=== PATIENT | female | born 1935 | race Caucasian/White ===

== ENCOUNTER 2017-10-29 08:50 | Emergency (ER) | payer OTHER ==
[~2017-10-29] VITALS: Ht 162.6 cm; Wt 80.0 kg
[~2017-10-29 08:50] MED LIST: CYCL-36 PO; LORT5TAB PO; MEVA40TA6 PO
[2017-10-29 08:54] VITALS: BP 162/72; PULSE 86; RESP 15; TEMP 98.4; O2SAT 98
[2017-10-29] MEDS ORDERED: ATOR40TA16 PO (09:06)
--- NOTE | 2017-10-29 10:00 | PD ---
HPI Chief Complaint: Fall Time Seen by Provider: 09:57 Travel History International Travel<30 days: No Contact w/Intl Traveler<30days: No Traveled to known affect area: No History of Present Illness HPI 81-year-old female patient presents to the ER today brought in by EMS, states that she had tripped and fallen last night, fell onto her right shoulder and right rib area where she is hurting, and is not sure whether she had any head injury. She denies any loss of consciousness. She states that she is having trouble moving the right shoulder and is having rib pain today. She denies any shortness of breath, or any other issues. Modifying Factors: None Associated Signs & Symptoms: Loss of balance and fall, right rib injury, right shoulder injury Risk Factors: None PFSH Past Medical History High Cholesterol: Yes Diminished Hearing: No Tetanus Vaccination: Unknown Influenza Vaccination: No Menopausal: Yes Past Surgical History Hysterectomy: Yes Other Surgery: Yes (colectomy) Social History Alcohol Use: Yes (2 vodka drinks daily) Tobacco Use: No Substance Use: No Allergies-Medications (Allergen,Severity, Reaction): Coded Allergies: No Known Allergies (Verified Adverse Reaction, Unknown, 10/29/17) Reported Meds & Prescriptions Reported Meds & Active Scripts Active Reported Atorvastatin (Atorvastatin Calcium) 40 Mg Tab 40 Mg PO HS Review of Systems Except as stated in HPI: all other systems reviewed are Neg Physical Exam Narrative GENERAL: Well-developed pleasant elderly white female patient currently in mild distress. Awake and oriented 3. SKIN: Focused skin assessment warm/dry. HEAD: Atraumatic. Normocephalic. EYES: Pupils equal and round. No scleral icterus. No injection or drainage. ENT: No nasal bleeding or discharge. Mucous membranes pink and moist. NECK: Trachea midline. No JVD. CARDIOVASCULAR: Regular rate and rhythm. No murmur appreciated. RESPIRATORY: No accessory muscle use. Clear to auscultation. Breath sounds equal bilaterally. CHEST: Tender to palpation of the right lateral rib area without deformity or crepitance. No retractions or use of accessory muscles. Right shoulder: Tender to palpation, no obvious deformities identified. Pain with ranging. GASTROINTESTINAL: Abdomen soft, non-tender, nondistended. Hepatic and splenic margins not palpable. MUSCULOSKELETAL: No obvious deformities. No clubbing. No cyanosis. No edema. NEUROLOGICAL: Awake and alert. No obvious cranial nerve deficits. Motor grossly within normal limits. Normal speech. PSYCHIATRIC: Appropriate mood and affect; insight and judgment normal. Data Data Last Documented VS Vital Signs Date Time Temp Pulse Resp B/P (MAP) Pulse Ox O2 Delivery O2 Flow Rate FiO2 10/29/17 08:54 98.4 86 15 162/72 (102) 98 Orders Orders Ribs, Uni (W/Exp Cxr-Min 3vw) (10/29/17 09:57) Shoulder, Complete (>2vws) (10/29/17 09:57) Ct Brain W/O Iv Contrast(Rout) (10/29/17 09:57) Splint Or Brace Apply/Monitor (10/29/17 11:29) [facility] Medical Decision Making Medical Screen Exam Complete: Yes Emergency Medical Condition: Yes Medical Record Reviewed: Yes Interpretation(s) Last [address] 10/29/17956 Signed Impressions: Service Date/Time: October 10:16 - CONCLUSION: 1. Aging brain with generalized volume loss. 2. No evidence of acute infarct, hemorrhage , mass or edema. 3. Intact skull. Kevin Urban MD Differential Diagnosis Trip and fall, right shoulder pain, right rib pains: Fractures versus contusions versus strain Narrative Course CT the brain did not show any signs of acute intracranial processes or injuries. X-rays show nondisplaced fifth and sixth rib fractures and a right humeral fracture which does not appear significantly displaced. She is placed in a sling. Medications are given for pain. Follow-up with orthopedics. Return for any worsening in pain or new symptoms as needed. The plan was discussed with the patient and she states understanding. Diagnosis Primary Impression: Fall Additional Impressions: Right rib fracture Right humeral fracture Med/Other Pt SpecificInfo: Prescription(s) given Scripts Oxycodone-Acetaminophen (Percocet) 5-325 mg Tab 1-2 TAB PO Q6H Y for PAIN, #20 TAB 0 Refills Prov: Lena Guzmán MD 10/29/17 Disposition: 01 DISCHARGE HOME Condition: Stable Lena Guzmán MD Oct 29, 2017 10:00
--- NOTE | 2017-10-29 10:27 | RADRPT ---
EXAM DATE/TIME: 10/29/2017 10:16 [facility] COMPARISON: No previous studies available for comparison. INDICATIONS : Fall last night RADIATION DOSE: 42.70 CTDIvol (mGy) MEDICAL HISTORY : None SURGICAL HISTORY : Hysterectomy. Colon Surgery ENCOUNTER: Initial ACUITY: 1 day PAIN SCALE: 2/10 LOCATION: cranial TECHNIQUE: Multiple contiguous axial images were obtained of the head. Using automated exposure control and adj ustment of the mA and/or kV according to patient size, radiation dose was kept as low as reasonably a chievable to obtain optimal diagnostic quality images. DICOM format image data is available electro nically for review and comparison. FINDINGS: CEREBRUM: The CSF spaces are enlarged. No evidence of midline shift, mass lesion, hemorrhage or acute infarctio n. No extra-axial fluid collections are seen. POSTERIOR FOSSA: The cerebellum and brainstem are intact. The 4th ventricle is midline. The cerebellopontine angle i s unremarkable. EXTRACRANIAL: The visualized portion of the orbits is intact. SKULL: The calvaria is intact. No evidence of skull fracture. CONCLUSION: 1. Aging brain with generalized volume loss. 2. No evidence of acute infarct, hemorrhage, mass or edema. 3. Intact skull. Kevin Urban MD on October 29, 2017 at 10:25 Board Certified Radiologist. This report was verified electronically.
--- NOTE | 2017-10-29 11:23 | RADRPT ---
EXAM DATE/TIME: 10/29/2017 10:43 [facility] COMPARISON: No previous studies available for comparison. INDICATIONS : Right shoulder pain; fell lastnight. MEDICAL HISTORY : None. SURGICAL HISTORY : None. ENCOUNTER: Initial ACUITY: 1 day PAIN SCORE: 10/10 LOCATION: Right ribs. FINDINGS: A nondisplaced fracture is identified of the right humeral head. The fracture appears to be located b etween the anatomic and surgical necks. Additional nondisplaced fragment of the greater tuberosity ma y also be present. Humeral head remains seated within the glenoid fossa. CONCLUSION: Nondisplaced humeral neck fracture of the right shoulder. Kevin Urban MD on October 29, 2017 at 11:20 Board Certified Radiologist. This report was verified electronically.
--- NOTE | 2017-10-29 11:25 | RADRPT ---
EXAM DATE/TIME: 10/29/2017 10:54 [facility] COMPARISON: No previous studies available for comparison. INDICATIONS : Right rib pain; fell lastnight. MEDICAL HISTORY : None. SURGICAL HISTORY : None. ENCOUNTER: Initial ACUITY: 1 day PAIN SCORE: 10/10 LOCATION: Right lateral shoulder. FINDINGS: Subtle cortical deformity is identified along the lateral margin of the sixth and seventh ribs. There is no evidence of displaced rib fracture. There is no evidence of pneumothorax or acute air space disease. CONCLUSION: Nondisplaced fractures of the right fifth and sixth ribs. No evidence of acute cardiopulmonary process. Kevin Urban MD on October 29, 2017 at 11:22 Board Certified Radiologist. This report was verified electronically.
[2017-10-29] MEDS ORDERED: PERC5TAB12 PO (11:38)
[2017-10-29 12:08] VITALS: BP 150/68; PULSE 80; RESP 16; O2SAT 98
== END 2017-10-29 12:11 | disposition home or self-care (01) ==
LOC: NEPC 08:50
DX: S22.41XA Multiple fractures of ribs, right side, initial encounter for closed fracture (principal); S42.301A Unspecified fracture of shaft of humerus, right arm, initial encounter for closed fracture; W01.0XXA Fall on same level from slipping, tripping and stumbling without subsequent striking against object, initial encounter
CPT/HCPCS: 70450; 71101; 73030; 99284